=== PATIENT | female | born 1980 | race Caucasian/White ===

== ENCOUNTER 2017-01-22 18:06 | Emergency (ER) | payer MEDICARE, MEDICAID ==
[~2017-01-22] VITALS: Ht 154.9 cm; Wt 86.4 kg
[~2017-01-22 18:06] MED LIST: AMOXICILLIN 50500 MG PO; BC; BCP TD; BIRTH CONTROL PILL; CEPHALEXIN500 M1 PO; KLONOPIN 0.5MG0.5 MG PO; KLONOPIN 1MG1 MG PO; METFORMIN1000 MG PO; NAPROSYN500 MG PO; NORCO 325 MG-51 TAB PO; PERCOCET 325 MG1 TA2 PO; PREDNISONE20 MG PO; RESPERIDOL; RISPERDAL 2M2 MG/TAB PO; RISPERDAL1 MG PO; RISPERDAL2 MG PO; ZITHROMAX Z PA250 MG PO
[2017-01-22 18:07] VITALS: TEMP 98.1
[2017-01-22 18:53] LABS: BASO # 0.1 (0.0-0.2); BASO % 0.6 % (0.0-2.0); EOS # 0.2 (0.0-0.7); EOS % 2.2 % (0-4.0); GRAN # 5.8 (1.4-6.5); GRAN % 58.5 % (42.2-75.2); HEMATOCRIT 44.5 % (37.0-47.0); HEMOGLOBIN 15.7 g/dl (12.5-16.0); LYMPH # 3.2 (1.2-3.4); LYMPH % 32.2 % (20.0-51.0); MEAN CELL VOLUME 87 fl (80.0-100.0); MEAN CORPUSCULAR HEMOGLOBIN 31 pg (27.0-31.0); MEAN CORPUSCULAR HGB CONC 35 g/dl (33.0-37.0); MEAN PLATELET VOLUME 9.5 fl (7.4-10.4); MONO # 0.6 (0.1-0.6); MONO % 6.2 % (1.7-9.3); PLATELET COUNT 265 K/mm3 (130-400)
[2017-01-22 19:06] LABS: ALANINE AMINOTRANSFERASE 19 U/L (9-52); ALBUMIN 4.5 gm/dL (3.5-5.0); ALKALINE PHOSPHATASE 77 U/L (50-136); ANION GAP 12 mmol/L (7-16); BILIRUBIN,TOTAL 0.8 mg/dL (0.0-1.0); BLOOD UREA NITROGEN 9 mg/dL (7-17); C-REACTIVE PROTEIN < 0.5 mg/dL (0.0-0.9); CALCIUM 9.4 mg/dL (8.4-10.2); CARBON DIOXIDE 22 mmol/L (22-30); CHLORIDE 105 mmol/L (98-107); CREATININE, serum 0.73 mg/dL (0.52-1.25); GLUCOSE 75 mg/dL (74-106); POTASSIUM 4.1 mmol/L (3.4-5.0); SODIUM 140 mmol/L (137-145); TOTAL PROTEIN 7.4 gm/dL (6.4-8.2)
[2017-01-22] MEDS ORDERED: NORCO 325 MG-51 TAB PO (19:53)
[2017-01-22 20:14] VITALS: BP 130/93; PULSE 70
== END 2017-01-22 20:29 | disposition home or self-care (01) ==
LOC: COL.ER 18:06
PROVIDERS: Emergency Medicine
DX: M54.89 Other dorsalgia (principal); F32.9 Major depressive disorder, single episode, unspecified; F41.9 Anxiety disorder, unspecified
CPT/HCPCS: J1170; J1885; J2405; J7030

== ENCOUNTER 2017-09-11 03:13 | Emergency (ER) | payer MEDICARE ==
[~2017-09-11] VITALS: Ht 152.4 cm; Wt 81.8 kg
[2017-09-11 03:20] VITALS: BP 140/75
[2017-09-11] MEDS ORDERED: IBU800 M1 PO (03:59)
[2017-09-11 04:00] LABS: BASO % 0.4 % (0.0-2.0); EOS # 0.2 (0.0-0.7); EOS % 1.8 % (0-4.0); GRAN # 7.5 (1.4-6.5); GRAN % 66.3 % (42.2-75.2); HEMATOCRIT 40.4 % (37.0-47.0); HEMOGLOBIN 14.1 g/dl (12.5-16.0); LYMPH # 2.9 (1.2-3.4); LYMPH % 25.4 % (20.0-51.0); MEAN CELL VOLUME 88 fl (80.0-100.0); MEAN CORPUSCULAR HEMOGLOBIN 31 pg (27.0-31.0); MEAN CORPUSCULAR HGB CONC 35 g/dl (33.0-37.0); MONO # 0.7 (0.1-0.6); MONO % 5.8 % (1.7-9.3); PLATELET COUNT 235 K/mm3 (130-400); RED BLOOD COUNT 4.59 M/mm3 (4.10-5.30); WHITE BLOOD COUNT 11.3 K/mm3 (4.8-10.8)
[2017-09-11 04:15] LABS: ADJUSTED CALCIUM 9.3 mg/dL (8.4-10.2); ALANINE AMINOTRANSFERASE 30 U/L (9-52); ALBUMIN 4.6 gm/dL (3.5-5.0); ALKALINE PHOSPHATASE 95 U/L (50-136); ANION GAP 9 mmol/L (7-16); BILIRUBIN,TOTAL 0.8 mg/dL (0.0-1.0); BLOOD UREA NITROGEN 10 mg/dL (7-17); CALCIUM 9.8 mg/dL (8.4-10.2); CARBON DIOXIDE 24 mmol/L (22-30); CHLORIDE 106 mmol/L (98-107); CREATININE, serum 0.61 mg/dL (0.52-1.25); GLUCOSE 97 mg/dL (74-106); LIPASE 58 U/L (23-300); SODIUM 139 mmol/L (137-145); TOTAL PROTEIN 7.4 gm/dL (6.4-8.2)
[2017-09-11 04:26] LABS: B-TYPE NATRIURETIC PEPTIDE 71 pg/mL (0-125)
[2017-09-11 04:30] LABS: TROPONIN-I < 0.012 ng/mL (0.000-0.034)
[2017-09-11] MEDS ORDERED: ZITHROMAX Z PA250 MG PO (05:12)
[2017-09-11] MEDS ORDERED: CARAFATE 1GM1 G PO (05:12)
[2017-09-11] MEDS ORDERED: PROTONIX 40MG T40 MG PO (05:12)
[2017-09-11 05:31] LABS: COLLECTION METHOD CLEAN CATCH
[2017-09-11 05:38] LABS: MUCOUS Present /lpf; PH 7 (5-8); URINE APPEARANCE Clear; URINE BACTERIA None Seen /hpf; URINE BILIRUBIN Negative (NEGATIVE); URINE BLOOD 1+ (NEGATIVE); URINE COLOR Straw; URINE GLUCOSE Negative (NEGATIVE); URINE KETONE Negative (NEGATIVE); URINE LEUKOCYTE ESTERASE Negative (NEGATIVE); URINE PROTEIN(semi-quant) Negative (NEGATIVE); URINE RBC 0-2 /hpf; URINE UROBILINOGEN Negative (NEGATIVE); URINE WBC 0-2 /hpf
[2017-09-11] MEDS ORDERED: FLEXERIL 1010 MG/TAB PO (05:51)
[2017-09-11 05:57] VITALS: PULSE 86; TEMP 97.1
== END 2017-09-11 05:55 | disposition home or self-care (01) ==
LOC: COL.ER 03:13
PROVIDERS: Emergency Medicine
DX: R07.89 Other chest pain (principal); M54.5 Low back pain; K21.9 Gastro-esophageal reflux disease without esophagitis; F20.9 Schizophrenia, unspecified
CPT/HCPCS: J1100; J7030; J7050; Q9967

== ENCOUNTER 2018-03-17 15:30 | Emergency (ER) | payer MEDICARE ==
[~2018-03-17] VITALS: Ht 160 cm; Wt 86.4 kg
[~2018-03-17 15:30] MED LIST changes: +CARAFATE 1GM1 G PO; +FLEXERIL 1010 MG/TAB PO; +IBU800 M1 PO; +PROTONIX 40MG T40 MG PO
[2018-03-17 15:33] VITALS: BP 120/61; PULSE 94; TEMP 98
[2018-03-17] MEDS ORDERED: NORCO 325 MG-51 TAB PO (16:25)
== END 2018-03-17 17:01 | disposition home or self-care (01) ==
LOC: COL.ER 15:30
DX: S82.832A Other fracture of upper and lower end of left fibula, initial encounter for closed fracture (principal); F17.210 Nicotine dependence, cigarettes, uncomplicated; X50.1XXA Overexertion from prolonged static or awkward postures, initial encounter; Y92.89 Other specified places as the place of occurrence of the external cause
CPT/HCPCS: Q4045

== ENCOUNTER 2019-01-29 10:59 | Emergency (ER) | payer MEDICARE ==
[~2019-01-29] VITALS: Ht 157.5 cm; Wt 86.4 kg
[2019-01-29 11:06] VITALS: BP 132/88; TEMP 97.5
[2019-01-29] MEDS ORDERED: PREDNISONE20 MG PO (12:26)
[2019-01-29] MEDS ORDERED: ZITHROMAX Z PA250 MG PO (12:26)
[2019-01-29 12:41] VITALS: PULSE 89
== END 2019-01-29 12:41 | disposition home or self-care (01) ==
LOC: COL.ER 10:59
DX: J40 Bronchitis, not specified as acute or chronic (principal); J98.01 Acute bronchospasm; F17.210 Nicotine dependence, cigarettes, uncomplicated; Z98.890 Other specified postprocedural states

== ENCOUNTER 2021-08-06 05:25 | Emergency (ER) | payer MEDICARE ==
[~2021-08-06] VITALS: Ht 154.9 cm; Wt 81.8 kg
[2021-08-06 06:11] LABS: BASO # 0.1 K/mm3 (0.0-0.2); BASO % 0.6 % (0.0-2.0); EOS # 0.2 K/mm3 (0.0-0.7); EOS % 2.2 % (0-4.0); GRAN # 6.1 K/mm3 (1.4-6.5); GRAN % 62.8 % (42.2-75.2); HEMOGLOBIN 14.8 g/dl (12.5-16.0); LYMPH # 2.7 K/mm3 (1.2-3.4); LYMPH % 27.8 % (20.0-51.0); MEAN CELL VOLUME 92 fl (80.0-100.0); MEAN CORPUSCULAR HEMOGLOBIN 31 pg (27.0-31.0); MEAN CORPUSCULAR HGB CONC 34 g/dl (33.0-37.0); MEAN PLATELET VOLUME 9.3 fl (7.4-10.4); MONO # 0.6 K/mm3 (0.1-0.6); PLATELET COUNT 274 K/mm3 (130-400); RED BLOOD COUNT 4.78 M/mm3 (4.10-5.30); REDCELL DISTRIBUTION WIDTH-CV 12.6 % (11.5-14.5)
[2021-08-06 06:12] LABS: COLLECTION METHOD CLEAN CATCH
[2021-08-06 06:19] LABS: MUCOUS Present /lpf; PH 6 (5-8); URINE APPEARANCE Hazy; URINE BACTERIA Rare /hpf; URINE BILIRUBIN Negative (NEGATIVE); URINE BLOOD Negative (NEGATIVE); URINE COLOR Yellow; URINE GLUCOSE Negative (NEGATIVE); URINE KETONE Negative (NEGATIVE); URINE LEUKOCYTE ESTERASE Negative (NEGATIVE); URINE NITRATE Negative (NEGATIVE); URINE PROTEIN(semi-quant) Negative (NEGATIVE); URINE RBC 0-2 /hpf; URINE UROBILINOGEN >=4.0 mg/dL (NEGATIVE)
[2021-08-06 06:32] LABS: CALCIUM 9.1 mg/dL (8.4-10.2); CREATININE, serum 1.07 mg/dL (0.57-1.11); POTASSIUM 3.8 mmol/L (3.5-4.5); TOTAL PROTEIN 7.1 gm/dL (6.2-8.1)
[2021-08-06 06:54] VITALS: BP 131/71; PULSE 72; TEMP 97.2
== END 2021-08-06 06:54 | disposition home or self-care (01) ==
LOC: COL.ER 05:25
PROVIDERS: Student in an Organized Health Care Education/Training Program
DX: R10.31 Right lower quadrant pain (principal); F17.210 Nicotine dependence, cigarettes, uncomplicated

== ENCOUNTER → 2022-11-23 | Emergency (ER) | payer MEDICARE ==
[~2022-11-23] VITALS: Ht 154.9 cm; Wt 81.8 kg
[~2022-11-23] MED LIST changes: +PEN-VEE K500 MG PO
[2022-11-23 19:41] VITALS: TEMP 98
[2022-11-23 20:02] VITALS: BP 127/86; PULSE 88
== END ==
LOC: COL.ER 19:29
DX: S02.5XXA Fracture of tooth (traumatic), initial encounter for closed fracture (principal); F17.200 Nicotine dependence, unspecified, uncomplicated; Z28.310 Unvaccinated for COVID-19; X58.XXXA Exposure to other specified factors, initial encounter